=== PATIENT | female | born 1980 | race Caucasian/White ===

== ENCOUNTER → 2016-12-02 | Outpatient (CLI) | payer SELFPAY ==
--- NOTE | 2016-12-02 10:25 | US ---
December 02, 2016 Dear Providers at the [facility], Thank you for allowing me to see your patient, Mrs. Ibarra for aneuploidy screening and cons ult. As you know, she is a 36 year-old, 2, para 0010. Her due date is 07/05/17 by LMP of . Based on this dating her current gestational age is 9 weeks 2 days. Sonia is well known to me from her first which resulted in loss between 15-16 weeks. The bleeding was complicated by chronic bleeding since 5 weeks. While away on vacation, she had increased bleeding and cramping and she immediately returned home for care. She was found to be in the process of an inevitable abor tion. The placenta was retained and required D&C. Pathology revealed some evidence of chorioamnioni tis. Her only other notable history is for LEEP for cervical dysplasia. This has not been complicated. She is on oral progesterone until about 10-12 weeks. ULTRASOUND LMP: 09/28/16 Gestational age by LMP: 9 weeks 2 days ILYA by LMP: 07/05/17 CRL: 23.8 mm Gestational Age by CRL: 9 weeks 1 days ILYA by CRL: 07/06/17 Consistent with established dating (LMP or ultrasound): Yes Nuchal Translucency: Not applicable Nasal Bone: Not applicable Heart Rate: 170 bpm Yolk Sac: Present; normal appearance Right Ovary: Is visualized and appears normal. It measures 2.5 x 1.7 x 2.6 cm. Left Ovary: Is not seen on today's ultrasound. Impression: 1. Intrauterine at 9w, 2d, ILYA of 07/05/17 by LMP and confirmed by today's ultrasound. 2. Advanced maternal age; desires NIPT 3. History of 15-16 weeks loss. 4. History of LEEP Recommendations: 1. Desires cell free DNA screening after 10 weeks. MSAFP for ONTD is offered between 15-21 we eks. 2. Although bleeding is the presumed issue with loss in her first that likely increased ri sk for infection and poor cervical integrity/labor, I do recommend surveillance of the cervix every 2 weeks from 15-16 weeks to 24 weeks. If shorter than 2.5 cm may be eligible for vaginal progesterone and/or cerclage depending on the circumstances. 3. Recommend a detailed obstetrical ultrasound between 19 and 20 weeks to evaluate anatomy. 4. Otherwise, routine course of care. She has several questions regarding protein and nutritional s ources that we reviewed today. Thank you for allowing us the opportunity to evaluate your patient. Should you have any further ques tions or concerns please do not hesitate to contact me. Approximately 15 minutes were spent with the patient and 10 minutes were spent in face to face consu ltation. Linda Cobb MD [employer] [facility] [facility] Department of Obstetrics & Gynecology [facility]
--- NOTE | 2016-12-02 11:25 | US ---
First Trimester Obstetrical Sonography Clinical History: 36-year-old female with advanced maternal age, presenting for assessment of v iability. LMP: September 28, 2016, indicating an age of 9 weeks 2 days, and an estimated date of delivery of 2016. Technique: A curvilinear 5 MHz transducer was used to sonographically evaluate the fetus and the plac enta. M-mode Doppler is used. Dr. Linda Cobb is present. Comparison Study: None. Findings: There is a single viable intrauterine gestation with a crown-rump length of 24 mm, indicati ng an age of 9 weeks 1 day. The yolk sac measures 4.5 mm and the heart rate is 170 beats per mi nute. There is no focal fibroid of subchorionic hemorrhage. The maternal right ovary measures 3.5 x 1 .7 x 2.6 cm, and the maternal left ovary was not seen. Impression: There is a single viable intrauterine gestation with biometry concordant with menstrual d ating. Given the patient's advanced maternal age, it may be worthwhile to consider repeat evaluation assessm ent of the nasal bone and nuchal translucency measurement between 11 and 13 weeks gestation, an d also complete detailed obstetrical sonography at 20 weeks gestation. Please also refer to Dr. Cobb's separate assessments and specific recommendations for follow up.
== END ==
LOC: FIMAGING 09:16
PROVIDERS: ATTEND Advanced Practice Midwife
DX: O09.522 Supervision of elderly multigravida, second trimester (principal); Z3A.09 9 weeks gestation of pregnancy

== ENCOUNTER → 2017-01-07 | Outpatient (CLI) | payer OTHER | LOC: FIMAGING 13:32 | PROVIDERS: ATTEND Advanced Practice Midwife | DX: O44.51 Low lying placenta with hemorrhage, first trimester (principal); Z3A.14 14 weeks gestation of pregnancy; O09.521 Supervision of elderly multigravida, first trimester ==